=== PATIENT | female | born 1995 | race Hispanic/Latino ===

== ENCOUNTER 2023-06-01 10:04 | Emergency (ER) | payer SELFPAY ==
[2023-06-01 10:07] VITALS: BP 119/60; PULSE 107; RESP 22; TEMP 37.2; O2SAT 94; BMI 36.6
--- NOTE | 2023-06-01 12:00 | EDS_ITS ---
HPI History of Present Illness Chief Complaint: General Illness Narrative Narrative: 27-year-old female presenting with headache, fever, chills, body aches. Patient states symptoms started 2 days ago. Patient does not speak Tunisian and is Honduran-speaking only. Olericulture Professor phone was used the entire interview. Patient states he has no significant medical history. She states that she does not think she has any sick contacts. She lives with her sister and her [id number] and neither one of them been ill. She does not work. She states he only lives out of the house to get groceries. She reports he must of developed her symptoms from the street. PFSH PFSH Allergy/AdvReac Type Severity Reaction Status Date / Time No Known Allergies Allergy Verified 06/01/23 10:06 ROS ROS ED Constitutional Constitutional ED: Reports chills and fever(s); Denies sweats Eyes Eyes: Denies blurry vision or change in vision ENT ENT ED: Reports rhinorrhea; Denies ear pain or sore throat Cardiovascular Cardiovascular: Denies chest pain, palpitations or racing heartbeat Respiratory/Chest Respiratory/Chest: Denies cough, dyspnea or sputum Gastrointestinal Gastrointestinal: Denies abdominal pain, constipation, diarrhea, nausea or vomiting Genitourinary Genitourinary ED: Denies dysuria, hematuria or urinary frequency Musculoskeletal Musculoskeletal: Reports myalgias; Denies arthralgias or neck pain Integumentary Denies abscess, Abrasions or rash Neurologic Neurologic: Reports headache(s); Denies paresthesias or weakness Psychiatric Psychiatric: Denies anxiety, depression, suicidal ideation or suicidal thoughts Endocrine Endocrinology: Denies polydipsia or polyuria EXAM Physical Exam Const Vital Signs: 06/01/23 10:07 Temperature 99 F Temperature Source Temporal Pulse Rate 107 H Respiratory Rate 22 H Blood Pressure 119/60 Blood Pressure Mean 79 Pulse Ox 94 Oxygen Delivery Method Room Air Positive well nourished General Appearance ED: NAD HEENT Reports moist mucous membranes HEENT Narrative: Diarrhea, nasal congestion Eyes PERRL and EOMs intact bilaterally Neck no lymphadenopathy Chest Wall inspection of chest normal and palpation of chest normal Resp normal respiratory effort and clear to auscultation bilaterally Auscultation: Negative for rales, rhonchi or wheezes Cardio regular rate and regular rhythm Neuro oriented x3 Sensorium / Orientation: alert Motor Exam: strength 5/5 throughout Psych mental status grossly normal Skin no rashes or lesions noted and no wounds MDM MDM MDM Narrative Medical decision making narrative: 27-year-old female presenting with viral symptoms. She tested positive for COVID-19 today. Olericulture Professor was used throughout the interview. Patient counseled on findings. Patient counseled on fever control. She is counseled to drink plenty of fluids. She is given instructions for COVID-19 and fever control. Patient denies nausea and does not need any nausea medications. Impression: 1. COVID-19 Lab Data Attestation: I reviewed the patient's lab results. Discharge Plan Triage Chief Complaint: General Illness ED Provider: Gómez Hernandez Dx/Rx/DC Orders Instructions: Coronavirus Disease 2019 (COVID-19): Caring for Yourself or Others, ED Fever Control (Adult) Primary Care Provider: Care Physician,Glenny Primary Referrals: [facility] [Non-Staff] - 3-5 Days Activity Restrictions/Additional Instructions: Alternate Tylenol and ibuprofen at home to control fevers, body aches, chills. Drink plenty of water. You can look up the CDC guidelines on COVID-19 on the Internet and follow them. Print Language: Honduran Disposition Disposition: Home, Self Care
--- NOTE | 2023-06-01 12:20 | ED.RN ---
MAJORITY OF ASSESSMENT INFORMATION BY PER MD FROM INTERPRETATION SESSION.
== END 2023-06-01 12:21 | disposition home or self-care (01) ==
PROVIDERS: Emergency Provider Student in an Organized Health Care Education/Training Program; Visit Provider Student in an Organized Health Care Education/Training Program
DX: U07.1 COVID-19 (principal)
CPT/HCPCS: 87428; 99282

== ENCOUNTER 2023-10-20 16:17 | Emergency (ER) | payer SELFPAY ==
[2023-10-20 16:18] VITALS: BP 112/56; PULSE 91; RESP 16; TEMP 35.9; O2SAT 98; BMI 34.7
--- NOTE | 2023-10-20 17:09 | ED.VIS.GI ---
HPI HPI - GI History of Present Illness Chief Complaint: Abd Pain Narrative Narrative: 28-year-old Tamaz[place]-speaking female presenting with epigastric pain. General Passenger Agent phone was used. She states it started on Tuesday after eating ceviche. She denies diarrhea. She states she has been constipated but had a bowel movement yesterday. No fevers or chills. She is able to eat but has decreased p.o. intake. She states he is only eating white rice and chicken with red spice on it. She states it is not very spicy. She has not tried anything for acid reflux [id number] nor has she tried ibuprofen or Tylenol. She states she has a history of gastritis where she comes from. She states that they did an echography of her abdomen. This does sound like a ultrasound but she states it is not. She is never had an endoscopy. No previous surgical history in her abdomen. She does not think she is . PFSH PFSH Medical History no medical history Home Medications omeprazole 40 mg capsule,delayed release 40 mg PO DAILY #30 caps 10/20/23 [Rx Last Taken Unknown] ondansetron 4 mg disintegrating tablet 4 mg PO Q8H PRN PRN Nausea #14 tabs 10/20/23 [Rx Last Taken Unknown] Allergy/AdvReac Type Severity Reaction Status Date / Time No Known Allergies Allergy Verified 10/20/23 16:23 Family History no significant family his Surgical History no surgical history Social History household members: family housing: house Smoking Status: Never smoker ROS ROS ED Constitutional Constitutional ED: Denies chills, fever(s) or sweats Eyes Eyes: Denies blurry vision or change in vision ENT ENT ED: Denies ear pain or sore throat Cardiovascular Cardiovascular: Denies chest pain, palpitations or racing heartbeat Respiratory/Chest Respiratory/Chest: Denies cough, dyspnea or sputum Gastrointestinal Gastrointestinal: Reports abdominal pain and constipation; Denies diarrhea, nausea or vomiting Genitourinary Genitourinary ED: Denies dysuria, hematuria or urinary frequency Musculoskeletal Musculoskeletal: Denies arthralgias, myalgias or neck pain Integumentary Denies abscess, Abrasions or rash Neurologic Neurologic: Denies headache(s), paresthesias or weakness Psychiatric Psychiatric: Denies anxiety, depression, suicidal ideation or suicidal thoughts Endocrine Endocrinology: Denies polydipsia or polyuria EXAM Physical Exam Const Vital Signs: 10/20/23 16:18 10/20/23 18:17 Temperature 96.6 F L Temperature Source Temporal Pulse Rate 91 92 Respiratory Rate 16 16 Blood Pressure 112/56 L 106/68 Blood Pressure Mean 74 80 Pulse Ox 98 99 Oxygen Delivery Method Room Air Room Air Positive well nourished General Appearance ED: NAD; Negative for pallor HEENT Reports moist mucous membranes normocephalic and atraumatic Eyes PERRL and EOMs intact bilaterally Resp normal respiratory effort Auscultation: Negative for rales, rhonchi or wheezes Cardio regular rate and regular rhythm GI Palpation: tender epigastric Neuro CN's II-XII intact bilaterally and moves all extremities Sensorium / Orientation: alert, oriented to person, oriented to place and oriented to time Psych mental status grossly normal Skin General Skin Exam: Negative for jaundice or pallor MDM MDM MDM Narrative Medical decision making narrative: Patient presenting with epigastric pain. It sounds like it started with ceviche on Tuesday she states it was not tomato-based it was lemon based. She has a history of gastritis in the past. She has not tried any medications yet to ease her pain. We did establish an IV. She is given IV Pepcid, Zofran and a GI cocktail. CBC will be obtained to assess white blood cell count, hemoglobin, platelets. CMP to assess liver function, renal function, electrolytes. Lipase to assess for pancreatitis. hCG to assess for . Urinalysis to assess for UTI. CBC shows normal white blood cell count of 6.5. Hemoglobin 6.4. MCV, MCH, MCHC all low as well. She states that she has a history of anemia from back in [place]. I do not believe this is an acute blood loss anemia. CMP shows normal liver function, renal function, electrolytes. Urinalysis was negative. We obtained a CT of the abdomen pelvis with IV contrast which shows a left-sided ovarian cyst and concern for possible mesenteric adenitis in the right lower quadrant however she has not any pain down here. The pain is all epigastric. Patient is feeling better after GI cocktail. I went over at length with her through the junior electrical engineer phone the type of food she should avoid and that she should eat. I gave her prescription for omeprazole and for Zofran. She was referred to GI for follow-up. Return precautions discussed. Impression: 1. Gastritis 2. Ovarian cyst 3. Anemia Lab Data Attestation: I reviewed the patient's lab results. Labs: Laboratory Results - last 24 hr 10/20/23 10/20/23 16:50 18:10 WBC 6.5 RBC 5.19 Hgb 6.4 L Hct 24.0 L MCV 46.2 L MCH 12.3 L MCHC 26.7 L RDW Std Deviation TNP RDW Coeff of David 30.5 H Plt Count 201 MPV TNP Immature Gran % (Auto) 0.500 Neut % (Auto) 65.4 Lymph % (Auto) 26.6 [place] % (Auto) 7.0 Eos % (Auto) 0.3 Baso % (Auto) 0.2 Absolute Neuts (auto) 4.3 Absolute Lymphs (auto) 1.74 Nucleated RBC % 0 Differential Comment SCANNED Polychromasia 1+ Hypochromasia 4+ Anisocytosis 3+ Target Cells 1+ Ovalocytes 1+ Schistocytes RARE Sodium 136 Potassium 3.2 L Chloride 107 Carbon Dioxide 23.0 Anion Gap 6 BUN 14 Creatinine 0.46 L Estim Creat Clear Calc 129.62 Est GFR (MDRD) Af Amer 206 Est GFR (MDRD) Non-Af 170 BUN/Creatinine Ratio 30.3 H Glucose 98 Calcium 8.7 Total Bilirubin 0.50 AST 11 L ALT 11 L Alkaline Phosphatase 104 Total Protein 8.0 Albumin 3.8 Globulin 4.2 Albumin/Globulin Ratio 0.9 Lipase 25 Serum , Qual NEGATIVE Urine Color Yellow Urine Clarity Clear Urine pH 7.0 Ur Specific [place] 1.005 Urine Protein 30 H Urine Glucose (UA) Normal Urine Ketones Negative Urine Occult Blood 50 H Urine Nitrite Negative Urine Bilirubin Negative Urine Urobilinogen Normal Ur Leukocyte Esterase Negative Urine RBC 0 SEEN Urine WBC 0 SEEN Ur Squamous Epith Cells 0-5 SEEN Urine Bacteria 0 SEEN Urine Mucus 0 SEEN Radiography Diagnostic Testing: Clinical Impression(s) from Imaging Studies Abdomen/Pelvis CT 10/20/23 17:37 IMPRESSION: 1. Lymph nodes in the root of mesentery extending the right lower quadrant which may represent mesenteric adenitis. 2. Fluid density mass in the left hemipelvis compatible with an ovarian cyst. No other acute abnormalities are identified. Electronically Signed: Broderick Malik MD at 19:03 EDT , Discharge Plan Triage Chief Complaint: Abd Pain ED Provider: Gómez Hernandez Dx/Rx/DC Orders Instructions: ED Gastritis (Adult), ED Ovarian Cyst Prescriptions: New omeprazole 40 mg capsule,delayed release(DR/EC) 40 mg PO DAILY Qty: 30 0RF ondansetron 4 mg tablet,disintegrating 4 mg PO Q8H PRN PRN (Reason: Nausea) Qty: 14 0RF Primary Care Provider: Care Physician,No Primary Referrals: Friend,Marky, DO [Med Staff - Active Staff] - 3-5 Days Care Physician,No Primary [Primary Care Provider] - Disposition Disposition: Home, Self Care
[2023-10-20] MEDS: Mag Hydrox/Al Hydrox/Simeth 30 ML UDC PO (17:14)
[2023-10-20] MEDS: Ondansetron 4 MG/2 ML Vial IV (17:14)
[2023-10-20 17:22] LABS: Absolute Lymphocyte Count 1.74 X10^3/uL (0.83-4.51); Absolute Neutrophil Count 4.3 X10^3/uL (2.0-7.7); Basophil# 0.01 X10^3/uL; Basophil% 0.2 % (0-1); Eosinophil# 0.02 X10^3/uL; Eosinophils% 0.3 % (0-5); Hemoglobin 6.4 g/dL (12.0-15.0); Lymphocyte # 1.74 X10^3/ul (0.83-4.51); Lymphocyte % 26.6 % (19-41); Mean Corp Hgb Conc 26.7 g/dL (32-36); Mean Corpuscular Hgb 12.3 pg (27.0-32.0); Mean Corpuscular Volume 46.2 fL (81-99); Monocyte# 0.46 X10^3/uL; NRBC Flagged by Analyzer 0 % (0-5); Neutrophil # 4.27 X10^3/uL (2.7-7.7); Neutrophil % 65.4 % (47-70); POSITIVE COUNT YES; POSITIVE MORPHOLOGY YES; Platelet Count 201 K/mm3 (150-450); RBC Distribution Width CV 30.5 % (11.6-14.6); Red Blood Count 5.19 M/mm3 (4.2-5.4); White Blood Count 6.5 K/mm3 (4.4-11.0)
[2023-10-20] MEDS: Famotidine 200 MG/20 ML MDV 20 MG in 0.9% Normal Saline (Pres. free 8 ML 300 MG IV (17:22)
[2023-10-20 17:29] LABS: Differential Indicated SCAN CRITERIA MET
--- NOTE | 2023-10-20 17:37 | CT_ITS ---
EXAM: CT ABDOMEN AND PELVIS WITH INTRAVENOUS CONTRAST CLINICAL INDICATION: epigastric pain TECHNIQUE: Helically acquired images were obtained of the abdomen and pelvis with intravenous contrast. This CT exam was performed using one or more of the following dose reduction techniques: automated exposure control, adjustment of the mA and/or kV according to patient size, and/or use of iterative reconstruction technique. CONTRAST: IV 100mL [id number] COMPARISON: No relevant prior studies available. FINDINGS: LOWER THORAX: Unremarkable. Lung bases are clear. No cardiomegaly. No significant pericardial effusion. ABDOMEN: LIVER: Unremarkable. Homogeneous. No focal mass. GALLBLADDER AND BILE DUCTS: Unremarkable. No calcified gallstones. No gallbladder distention or wall edema. No intra- or extrahepatic biliary ductal dilation. PANCREAS: Unremarkable. No focal cystic or solid mass. SPLEEN: Unremarkable. Normal size without focal cystic or solid mass. ADRENALS: Unremarkable. No nodules. KIDNEYS AND URETERS: Unremarkable. Normal renal size and position. No hydronephrosis. STOMACH AND BOWEL: Unremarkable. No stomach or bowel distention. No focal inflammatory change. PELVIS: APPENDIX: No evidence of acute appendicitis. BLADDER: Unremarkable. REPRODUCTIVE: There is a fluid density mass in the left hemipelvis that measures 2.6 x 2.1 cm likely representing an ovarian cyst. ABDOMEN and PELVIS: INTRAPERITONEAL SPACE: Unremarkable. No ascites or other fluid collection. No free air. BONES/JOINTS: Unremarkable. No suspicious lytic or blastic abnormality. SOFT TISSUES: Unremarkable. No discrete abdominal or pelvic wall hernia. VASCULATURE: Unremarkable. Abdominal aorta is non-dilated. LYMPH NODES: There are small lymph nodes in the root of mesentery that extends to the right lower quadrant which may represent mesenteric adenitis. CT/Abdomen/Pelvis W IV Cont ONLY IMPRESSION: 1. Lymph nodes in the root of mesentery extending the right lower quadrant which may represent mesenteric adenitis. 2. Fluid density mass in the left hemipelvis compatible with an ovarian cyst. No other acute abnormalities are identified. Electronically Signed: Broderick Malik MD at 19:03 EDT ,
[2023-10-20 17:38] LABS: Internal QC Validated? YES +Cl - CLEAR BKGD; Pregnancy, Serum, hCG Quali. NEGATIVE Negative
[2023-10-20 17:43] LABS: ALB/GLOB Ratio 0.9 RATIO (0.9-2.4); AST(SGOT) 11 U/L (15-37); Alanine Aminotransfer ALT/SGPT 11 U/L (13-56); Albumin, Serum 3.8 g/dL (3.2-5.0); Alkaline Phosphatase 104 U/L (45-117); Anion Gap 6 (5-15); BUN 14 mg/dL (7-18); BUN/Creat Ratio 30.3 RATIO (10-20); Calcium,Total 8.7 mg/dL (8.5-10.1); Chloride 107 mmol/L (98-107); Creatinine, Serum 0.46 mg/dL (0.55-1.02); EST Glomerular Filtration Rate 170 mL/min (>60); Est Glom Filt Rate - Afr Amer 206 mL/min (>60); Estimated Creatinine Clearance 129.62 ml/min; Globulin 4.2 g/dL (2.2-4.2); Glucose 98 mg/dL (74-106); Lipase 25 U/L (13-75); Potassium 3.2 mmol/L (3.5-5.1); Sodium Level 136 mmol/L (136-145)
[2023-10-20 17:51] LABS: Differential Comment SCANNED
[2023-10-20 17:52] LABS: Hypochromasia 4+
[2023-10-20 17:53] LABS: Anisocytosis 3+; Polychromasia 1+; Target Cells 1+
[2023-10-20 17:54] LABS: Schistocytes RARE
[2023-10-20 17:55] LABS: Ovalocyte 1+
[2023-10-20 18:17] VITALS: BP 106/68; PULSE 92; RESP 16; O2SAT 99
[2023-10-20 18:18] LABS: Bacteria 0 SEEN /hpf (None Seen); Mucous, Urine 0 SEEN /hpf (<or=2+); Red Blood Cells-Urine 0 SEEN /hpf (0-5); White Blood Cells 0 SEEN /hpf (0-5)
[2023-10-20 18:22] LABS: Color, Urine Yellow (Yellow); Glucose, Dipstick Normal (Normal); Ketone-Dipstick Negative (Negative); Leukocyte Esterase-Dipstick Negative /ul (Negative); Nitrite-Dipstick Negative (Negative); Occult Blood-Urine 50 /ul (Negative); Protein-Dipstick 30 mg/dl (Negative); Specific Gravity, Urine 1.005 (1.002-1.030); Urine Bilirubin Dipstick Negative (Negative); Urine Clarity Clear (Clear); Urine Urobilinogen Normal (Normal)
[2023-10-20 18:43] LABS: Squamous Epithelial Cells - UA 0-5 SEEN /hpf (5-10)
[2023-10-20 19:59] VITALS: BP 112/54; PULSE 74; RESP 16; TEMP 36.7; O2SAT 99
== END 2023-10-20 19:56 | disposition home or self-care (01) ==
PROVIDERS: Emergency Provider Student in an Organized Health Care Education/Training Program; Visit Provider Student in an Organized Health Care Education/Training Program
DX: K29.70 Gastritis, unspecified, without bleeding (principal); D64.9 Anemia, unspecified; R10.13 Epigastric pain; N83.202 Unspecified ovarian cyst, left side
CPT/HCPCS: 74177; 80053; 81001; 83690; 84703; 85025; 96374; 96375; 99284; Q9967; A4216; J2405; J3490